=== PATIENT | female | born 1970 | race Caucasian/White ===

== ENCOUNTER → 2017-11-18 | Outpatient (CLI) | payer OTHER ==
[2017-11-18 18:56] LABS: Basophils % (A) 0 %; Eosinophils # (A) 0.2 k/uL (0-0.7); Eosinophils % (A) 3 %; HCT 37.3 % (34.0-46.0); HGB 11.8 gm/dL (11.4-16.0); Hypochromasia Moderate; Lymphocytes % (A) 26 %; MCH 26.2 pg (25.0-35.0); MCHC 31.6 g/dL (31.0-37.0); MCV 82.8 fL (80.0-100.0); Mean Platelet Volume 8.2; Monocytes # (A) 0.3 k/uL (0-1.0); Monocytes % (A) 4 %; Neutrophils # (A) 5.2 k/uL (1.3-7.7); Neutrophils % (A) 66 %; Platelet Count 325 k/uL (150-450); RBC 4.51 m/uL (3.80-5.40); RDW 14.7 % (11.5-15.5); WBC 7.9 k/uL (3.8-10.6)
[2017-11-18 18:57] LABS: ALT 28 U/L (9-52); AST 15 U/L (14-36); Alkaline Phosphatase 84 U/L (38-126); Anion Gap 12 mmol/L; Blood Urea Nitrogen 11 mg/dL (7-17); Calcium 9.1 mg/dL (8.4-10.2); Carbon Dioxide 25 mmol/L (22-30); Chloride 103 mmol/L (98-107); Cholesterol 202 mg/dL (<200); Glucose 89 mg/dL (74-99); HDL Cholesterol 45 mg/dL (40-60); LDL Cholesterol,Calculated 106 mg/dL (0-99); Potassium 4.5 mmol/L (3.5-5.1); Sodium 140 mmol/L (137-145); Total Bilirubin 0.2 mg/dL (0.2-1.3); Total Protein 6.7 g/dL (6.3-8.2); Triglycerides 253 mg/dL (<150)
[2017-11-18 19:12] LABS: T4, Free (Free Thyroxine) 1.05 ng/dL (0.78-2.19)
== END | disposition home or self-care (01) ==
LOC: MMGSC 10:14
PROVIDERS: ATTEND Family Medicine
DX: Z00.00 Encounter for general adult medical examination without abnormal findings (principal)
CPT/HCPCS: 36415; 80053; 80061; 84439; 84443; 85025

== ENCOUNTER → 2022-05-13 | Outpatient (CLI) | payer BC ==
[2022-05-13 13:08] VITALS: BP 170/94; PULSE 92; RESP 18; TEMP 98.9
--- NOTE | 2022-05-13 13:31 | P.GSHP ---
History of Present Illness H&P Date: 05/13/22 Chief Complaint: Abnormal left breast mammogram Karma is a 52-year-old female seen in consultation for Dr. Luna regarding a mammographic abnormality in her left breast. [place] [address]. Additional views of the left breast were recommended. This was performed and [id number] this revealed a punctate amorphous calcifications with cluster distribution seen in the left breast at 7:00 in the inferior medial aspect. Recommendation was for [facility] to core biopsy. The patient does not feel any lumps masses or nodules of concern in either breast. She is not complaining of any nipple discharge or skin changes. She has not had any recent trauma or infection of the breast. She has never had any surgery or biopsies in her breast. Caffiene: 2-3 cups coffee/day nicotine: none chocolate: occasional BCP: 15 years stopped 20 years ago Family history: mother: at 64 of breast cancer; tested (-) BRACA first diagnosed at 51; a mastectomy and returned at 66 mets and in 9 months maternal great aunt: of breast cancer maternal great uncle: breast cancer maternal cousin: brain cancer paternal uncle: leukemia paternal cousin: jaw cancer Hormonal History: menarche: 14 M1, breast fed: no, age at :35 menopuase: still having periods last one started 3 days ago Surgical history: Medical history: gout Social History: Nicotine: Negative Alcohol: two a week mixed drinks drugs: none - Constitutional Constitutional: Reports sweats - EENT Eyes: denies blurred vision, denies pain Ears: bilateral: decreased hearing, tinnitus Ears, nose, mouth and throat: Denies headache, Denies sore throat - Breasts Breasts: bilateral: as per HPI - Cardiovascular Cardiovascular: Denies chest pain, Denies shortness of breath - Respiratory Respiratory: Denies cough, Denies 7 - Gastrointestinal Gastrointestinal: Denies abdominal pain, Denies diarrhea, Denies nausea, Denies vomiting - Genitourinary (Female) Genitourinary: Denies dysuria, Denies hematuria - Menstruation Comment: perimenopausal - Musculoskeletal Musculoskeletal: Denies myalgias - Integumentary Integumentary: Denies pruritus, Denies rash - Neurological Neurological: Denies numbness, Denies weakness - Psychiatric Psychiatric: Reports anxiety, Denies depression - Endocrine Endocrine: Denies fatigue, Denies weight change - Hematologic/Lymphatic Comment: none - Allergic/Immunologic Allergic/Immunologic: Reports as per HPI Past Medical History Past Medical History: No Reported History Additional Past Medical History / Comment(s): GOUT 2021 History of Any Multi-Drug Resistant Organisms: None Reported Past Surgical History: No Surgical Hx Reported Past Anesthesia/Blood Transfusion Reactions: No Reported Reaction Past Psychological History: Anxiety, Depression Smoking Status: Never smoker Past Drug Use History: None Reported Medications and Allergies Home Medications Medication Instructions Recorded Confirmed Type allopurinoL 100 mg PO DAILY 04/30/22 05/13/22 History amLODIPine [Norvasc] 2.5 mg PO DAILY 04/30/22 05/13/22 History Allergies Allergy/AdvReac Type Severity Reaction Status Date / Time No Known Allergies Allergy Verified 05/13/22 13:01 Surgical - Exam Vital Signs Temp Pulse Resp BP Pulse Ox 98.9 F 92 18 170/94 98 05/13/22 13:02 05/13/22 13:02 05/13/22 13:02 05/13/22 13:02 05/13/22 13:02 BMI: 43.8 - General no distress - Eyes normal ocular movement - Neck trachea midline - Respiratory normal respiratory effort, clear to auscultation - Cardiovascular Rhythm: regular Heart Sounds: normal: S1, S2 - Abdomen Abdomen: soft, non tender, no guarding, no rigid, no rebound - Integumentary normal turgor - Neurologic no disoriented, no combative - Musculoskeletal normal gait, normal posture - Psychiatric oriented to time, oriented to person, oriented to place, speech is normal, memory intact Breast Exam: BRA: 42DD inspection: bilateral grade 3 ptosis Palpation: Right breast: Multi-positional exam fibrocystic changes no dominant masses or nodules of concern Right axilla: No adenopathy of concern Left breast: Multiple positional exam fibrocystic changes no dominant masses or nodules of concern Left axilla: No adenopathy of concern Results Mammogram reviewed with Dr. Baker; microcalcifications in the left breast 7 o'clock position noted Assessment and Plan Assessment: Impression: Microcalcifications of concern left breast Fibrocystic breast changes Family history of breast cancer Gout Plan: Stereotactic core biopsy left breast Risk and benefits of the procedure discussed with the patient. Risks include but are not limited to bleeding, infection, reaction to the anesthetic. If the lesion were discordant biopsy and additional tissue may be necessary. Alternatives such as watchful waiting dissection the operating room or noted but not recommended. The patient understands and wishes to proceed. CC: Dr. Luna
== END ==
LOC: WWCWWP 12:51
PROVIDERS: ATTEND Surgery
DX: N60.11 Diffuse cystic mastopathy of right breast (principal); N60.12 Diffuse cystic mastopathy of left breast; Z80.3 Family history of malignant neoplasm of breast; M10.9 Gout, unspecified; F41.9 Anxiety disorder, unspecified; F32.A Depression, unspecified

== ENCOUNTER → 2022-05-14 | Day surgery (SDC) | payer BC ==
[2022-05-14 07:24] VITALS: RESP 16
[2022-05-14 09:28] VITALS: BP 124/79; PULSE 76; TEMP 98.7
--- NOTE | 2022-05-17 08:27 | MM ---
Date of Procedure: 05/14/22 Preoperative Diagnosis: Microcalcifications of concern left breast/after review with Dr. Calixto there were 2 areas which were recommended to be biopsied, location 7:00 left breast inferior medial aspect Postoperative Diagnosis: Same Procedure(s) Performed: Stereotactic core biopsy 2 areas of concern left breast inferior medial region Anesthesia: local Surgeon: Fabi Salazar Pathology: other (Posterior calcifications: Clip Top-Hat secured marked, calcifications noted in specimenAnterior calcifications: Try Arvind bowtie clip, calcifications noted in specimen) Condition: stable Disposition: same day Indications for Procedure: Microcalcifications of concern 2 areas in the left breast at the 7 o'clock position Operative Findings: Calcifications of concern noted in both the posterior and anterior biopsy specimens Description of Procedure: Karma is a 52-year-old white female who underwent a routine screening mammogram was noted to have calcifications of concern in the 7 o'clock position of the left breast. Review with our radiologist revealed 2 areas and 2 sites were designated for stereotactic core biopsy in the inferior medial aspect of the breast. Risks and benefits of the procedure were discussed with the patient. Risks include but are not limited to bleeding, infection, reaction to the anesthetic. Additionally alternatives such as watchful waiting or resection in the operating room were discussed but not recommended. The patient was brought to the stereotactic core biopsy room. She was positioned prone on the lo-rad table. A CC from below approach was utilized. The posterior calcifications were identified initially. These were targeted. The breast was prepped using Betadine. 20 mL of 1% lidocaine were used to anesthetize the area of concern. A 9-gauge vacuum-assisted core rotating biopsy needle was driven to the correct coordinates. A prefire film was obtained. The needle was noted to be in the correct location. The needle was fired. A post- fire film revealed the needle to be in the correct location. 24 core biopsy specimens were obtained. Radiograph of the specimens revealed the calcifications of concern had been sampled. A secure arvind Top-Hat clip was placed. This appeared to be in the correct location. The patient was repositioned on the lo-rad table. A CC from below approach was utilized. The anterior microcalcifications of concern were identified. These were targeted. The breast was prepped using Betadine. A 9-gauge vacuum- assisted core rotating biopsy needle was driven to the correct coordinates. 20 mL of 1% lidocaine were used to anesthetize the area of concern. A prefire film revealed the needle to be in the correct location. The needle was fired. A post fire film revealed the needle to be in the correct location. 14 core biopsy specimens were obtained. Radiograph of the specimens revealed the calcifications of concern had been sampled. A tri-arvind bowtie clip was placed. This appeared to be in the correct location. The specimens are sent to pathology. The patient will follow-up with Dr. Tom next week. A postprocedure mammogram to review will be obtained to assure the placement of the clips in the correct location. JOSE FRANCISCO
== END ==
LOC: RADMAMWWP 07:15
PROVIDERS: ATTEND Surgery
DX: N60.12 Diffuse cystic mastopathy of left breast (principal); N60.22 Fibroadenosis of left breast; D24.2 Benign neoplasm of left breast; N62 Hypertrophy of breast; R92.0 Mammographic microcalcification found on diagnostic imaging of breast; N60.02 Solitary cyst of left breast; Z79.899 Other long term (current) drug therapy
CPT/HCPCS: 88305; 19081; 19082; A4648; J2001

== ENCOUNTER 2022-09-03 10:10 | Day surgery (SDC) | payer BC ==
[2022-09-01 10:22] VITALS: BMI 42.9
[~2022-09-03 10:10] MED LIST: LACTATED RINGERS 1,000 ML IV SCH
[2022-09-03 12:29] VITALS: TEMP 97.9
[2022-09-03] MEDS ORDERED: LIDOCAINE 1% (10MG/ML) FOR IV START INTRADERMA ONE (12:30)
[2022-09-03] MEDS ORDERED: fentaNYL (PF) 50 MCG/ML 2 ML AMP ONE (12:58)
[2022-09-03] MEDS ORDERED: MIDAZOLAM 2 MG/2 ML VIAL ONE (12:58)
[2022-09-03] MEDS ORDERED: PROPOFOL 10 MG/ML 20 ML VIAL IV ONE (12:58)
--- NOTE | 2022-09-03 13:11 | P.PCN ---
Date of Procedure: 09/03/22 Procedure(s) Performed: BRIEF HISTORY: Patient is a 52-year-old pleasant white female scheduled for an elective colonoscopy as a part of screening for colorectal neoplasia. PROCEDURE PERFORMED: Colonoscopy with snare polypectomy. PREOPERATIVE DIAGNOSIS: Screening for colon cancer. IV sedation per Anesthesia. PROCEDURE: After informed consent was obtained, the patient, was brought into the endoscopy unit. IV sedation was administered by Anesthesia under continuous monitoring. Digital rectal examination was normal. Initially the Olympus CF-160 flexible video colonoscope was then inserted in the rectum, gradually advanced into the cecum without any difficulty. Careful examination was performed as the scope was gradually being withdrawn. Ileocecal valve and the appendiceal orifice were visualized and appeared normal. Prep was excellent. Mucosa of the cecum, appeared normal. In the ascending colon there was a 7 mm flat polyp removed by snare polypectomy. Rest of the ascending colon, transverse colon, descending colon, sigmoid colon, and rectum appeared normal. Retroflexion was performed in the rectum and no lesions were seen. The patient tolerated the procedure well. IMPRESSION: 7 mm flat ascending colon polyp status post polypectomy Rest of the colon appeared normal RECOMMENDATIONS: Findings of this examination were discussed with the patient as well as a family. She was advised to follow with the biopsy results. If the biopsy results adenoma she can have a repeat colonoscopy in 5 years.
[2022-09-03 13:17] VITALS: RESP 20
[2022-09-03 13:32] VITALS: BP 154/84; PULSE 91
== END 2022-09-03 13:48 ==
LOC: ORWHC2ENDO 10:10
PROVIDERS: ATTEND Internal Medicine Gastroenterology
DX: Z12.11 Encounter for screening for malignant neoplasm of colon (principal); K63.5 Polyp of colon; I10 Essential (primary) hypertension; F32.A Depression, unspecified; F41.9 Anxiety disorder, unspecified; Z79.899 Other long term (current) drug therapy
CPT/HCPCS: 81025; 88305; 45385; J2250; J3010; J2704

== ENCOUNTER → 2022-12-01 | Outpatient (CLI) | payer BC ==
--- NOTE | 2022-12-01 10:19 | MM ---
Reason for Exam: Follow-up at short interval from prior study. Last screening mammogram was performed 8 month(s) ago. Patient History: Menarche at age 13. First Full-Term at age 35. Late child-bearing (after 30). Perimenopausal. Previous Hyperplasia w/o Atypia at age 52. 05/14/2022, Benign MG stereo VAD BX LT on the left side. 05/14/2022, Benign MG stereo VAD BX addl LT on the left side. Maternal aunt had breast cancer. Maternal uncle had breast cancer. Mother had breast cancer, age 49. Last menstrual period: 11/11/2022 Risk Values: Cynthia 5 year model risk: 3.2%. NCI Lifetime model risk: 26.7%. Tissue Density: Left: There are scattered fibroglandular densities. Findings: Analyzed By CAD. Left breast biopsy clips. No suspicious masses, calcifications or distortions. Overall Assessment: Benign, BI-RAD 2 Management: Screening Mammogram of both breasts in 6 months. A clinical breast exam by your physician is recommended on an annual basis and results should be correlated with mammographic findings. This exam should not preclude additional follow-up of suspicious palpable abnormalities. Results were given to the patient verbally at the time of exam. Electronically signed and approved by: Ronald Weaver DO
== END | disposition home or self-care (01) ==
LOC: RADMAMWWP 09:44
PROVIDERS: ATTEND Surgery
DX: R92.8 Other abnormal and inconclusive findings on diagnostic imaging of breast (principal); Z80.3 Family history of malignant neoplasm of breast
CPT/HCPCS: 77061; 77065

== ENCOUNTER → 2023-05-31 | Outpatient (CLI) | payer BC ==
--- NOTE | 2023-05-31 12:39 | MM ---
Reason for Exam: Screening (asymptomatic). Last mammogram was performed 1 year(s) and 2 month(s) ago. Patient History: Menarche at age 13. First Full-Term at age 35. Late child-bearing (after 30). Perimenopausal. Previous Hyperplasia w/o Atypia at age 52. 05/14/2022, Benign MG stereo VAD BX LT on the left side. 05/14/2022, Benign MG stereo VAD BX addl LT on the left side. Maternal aunt had breast cancer. Maternal uncle had breast cancer. Mother had breast cancer, age 49. Risk Values: Cynthia 5 year model risk: 3.4%. NCI Lifetime model risk: 26.3%. Prior Study Comparison: [place] [facility] [place] [facility] [place]22 Left MG 3D diag mammo w/cad LT, [facility]. Tissue Density: The breast tissue is heterogeneously dense. This may lower the sensitivity of mammography. Findings: Analyzed By CAD. Left breast biopsy clip. There is no suspicious group of microcalcifications or new suspicious mass in either breast. Overall Assessment: Negative, BI-RAD 1 Management: Screening Mammogram of both breasts in [address] [facility] will attempt to contact patient to return for supplemental views and ultrasound if indicated. Patient should continue monthly self-breast exams. A clinical breast exam by your physician is recommended on an annual basis. This exam should not preclude additional follow-up of suspicious palpable abnormalities. Note on Cynthia scores and lifetime risk: 1. A Cynthia score greater than 3% is considered moderate risk. If this is the case, consider specialist referral to assess eligibility for a risk reducing agent. 2. If overall lifetime risk for the development of breast cancer is 20% or higher, the patient may qualify for future screening with alternating mammogram and breast MRI. Electronically signed and approved by: Ronald Weaver DO
== END | disposition home or self-care (01) ==
LOC: RADMAMWWP 08:47
PROVIDERS: ATTEND Surgery
DX: Z12.31 Encounter for screening mammogram for malignant neoplasm of breast (principal); Z80.3 Family history of malignant neoplasm of breast
CPT/HCPCS: 77063; 77067

== ENCOUNTER → 2023-06-03 | Outpatient (CLI) | payer BC ==
[2023-06-03 10:26] VITALS: BP 154/87; PULSE 105; RESP 18; TEMP 97.8
--- NOTE | 2023-06-03 10:51 | P.PN ---
Subjective Progress Note Date: 06/03/23 Principal diagnosis: Fibrocystic breast changes, high risk breast cancer fibrocystic breast changes/surveillance Karma is a 52-year-old female seen in consultation for Dr. Luna regarding a mammographic abnormality in her left breast. She underwent a bilateral screening mammogram on . Additional views of the left breast were recommended. [place] was performed [place] [id number] this revealed a punctate amorphous calcifications with cluster distribution seen in the left breast at 7:00 in the inferior medial aspect. Recommendation was for stero-tactic core biopsy. She had stero biopsy of two area in the left breast on 05-14-22 which were benign specific. The patient does not feel any lumps masses or nodules of concern in either breast. She is not complaining of any nipple discharge or skin changes. She has not had any recent trauma or infection of the breast. Bilateral mammograms [id number] BIRAD 1 Cynthia five-year risk 3.4%, discussed chemoprevention and patient declined NCI lifetime risk 26.3% Caffiene: 2-3 cups coffee/day nicotine: none chocolate: occasional BCP: 15 years stopped 20 years ago Family history: mother: at 64 of breast cancer; tested (-) BRCA first diagnosed at 49; a mastectomy and returned at 66 mets and in 9 months maternal great aunt: of breast cancer maternal great uncle: breast cancer maternal cousin: brain cancer paternal uncle: leukemia paternal cousin: jaw cancer Hormonal History: menarche: 14 M1, breast fed: no, age at :35 menopuase: still having periods last one started 3 days ago Surgical history: D&C Medical history: gout Social History: Nicotine: Negative Alcohol: two a week mixed drinks drugs: none - Constitutional Constitutional: Reports sweats - EENT Eyes: denies blurred vision, denies pain Ears: bilateral: decreased hearing, tinnitus Ears, nose, mouth and throat: Denies headache, Denies sore throat - Breasts Breasts: bilateral: as per HPI - Cardiovascular Cardiovascular: Denies chest pain, Denies shortness of breath - Respiratory Respiratory: Denies cough - Gastrointestinal Gastrointestinal: Denies abdominal pain, Denies diarrhea, Denies nausea, Denies vomiting - Genitourinary (Female) Genitourinary: Denies dysuria, Denies hematuria - Menstruation Comment: perimenopausal - Musculoskeletal Musculoskeletal: Denies myalgias - Integumentary Integumentary: Denies pruritus, Denies rash - Neurological Neurological: Denies numbness, Denies weakness - Psychiatric Psychiatric: Reports anxiety, Denies depression - Endocrine Endocrine: Denies fatigue, Denies weight change - Hematologic/Lymphatic Comment: none - Allergic/Immunologic Allergic/Immunologic: Reports as per HPI Past Medical History Past Medical History: No Reported History Additional Past Medical History / Comment(s): GOUT 2021 History of Any Multi-Drug Resistant Organisms: None Reported Past Surgical History: No Surgical Hx Reported Past Anesthesia/Blood Transfusion Reactions: No Reported Reaction Past Psychological History: Anxiety, Depression Smoking Status: Never smoker Past Drug Use History: None Reported Medications and Allergies Home Medications Medication Instructions Recorded Confirmed Type allopurinoL 100 mg PO DAILY 04/30/22 05/13/22 History amLODIPine [Norvasc] 2.5 mg PO DAILY 04/30/22 05/13/22 History Allergies Allergy/AdvReac Type Severity Reaction Status Date / Time No Known Allergies Allergy Verified 05/13/22 13:01 Objective - Vital Signs Vital signs: Vital Signs Temp 97.8 F 06/03/23 10:22 Pulse 105 H 06/03/23 10:22 Resp 18 06/03/23 10:22 BP 154/87 06/03/23 10:22 Pulse Ox 96 06/03/23 10:22 FiO2 Intake & Output 06/02/23 06/03/23 06/03/23 18:59 06:59 18:59 Weight 111.13 kg - Constitutional General appearance: Present: cooperative - EENT Eyes: Present: EOMI ENT: Present: hearing grossly normal - Neck Neck: Present: normal ROM - Respiratory Respiratory: bilateral: CTA - Cardiovascular Rhythm: regular Heart sounds: normal: S1, S2 - Gastrointestinal General gastrointestinal: Present: soft - Integumentary Integumentary: Present: normal turgor - Musculoskeletal Musculoskeletal: Present: gait normal - Psychiatric Psychiatric: Present: A&O x's 3, appropriate affect, intact judgment & insight - Additional findings Additional findings: Breast Exam: BRA: 42DD inspection: bilateral grade 3 ptosis; Palpation: Right breast: Multi-positional exam fibrocystic changes no dominant masses or nodules of concern Right axilla: No adenopathy of concern Left breast: Multiple positional exam fibrocystic changes no dominant masses or nodules of concern Left axilla: No adenopathy of concern Assessment and Plan Assessment: Impression: Bilateral fibrocystic breast changes Cynthia five-year model risk 3.4%, NCI lifetime risk 26.3% Plan: Bilateral mammogram in 1 year consider alternate 6 months MRI are going to see if her insurance company will allow this if so I will see her in 6 months after the MRI otherwise I will see her in 1 year after her mammogram discussion about chemo prophylaxis,patient declined Cc: Dr. Luna
== END ==
LOC: WWCWWP 10:15
PROVIDERS: ATTEND Surgery
DX: Z71.2 Person consulting for explanation of examination or test findings (principal); N60.11 Diffuse cystic mastopathy of right breast; N60.12 Diffuse cystic mastopathy of left breast; M10.9 Gout, unspecified; Z80.3 Family history of malignant neoplasm of breast

== ENCOUNTER → 2023-12-12 | Outpatient (CLI) | payer BC ==
--- NOTE | 2023-12-13 10:09 | BMR ---
EXAM DATE: 12/12/2023 EXAM DESCRIPTION: MRI-Breast Bilat (W/WO Contrast) INDICATION: >20% lifetime risk for malignancy presenting for high risk surveillance COMPARISON: PRIOR MRIs: None available. Correlation to mammograms: 05/31/2023, 12/01/2022. Correlation to ultrasound: None available. CONTRAST: 12 cc Gadavist IV gadolinium contrast TECHNIQUE: Study was performed at [facility] with Radiologic interpretation by [facility] Multiplanar multisequence MR imaging of both breasts was performed with a dedicated breast coil. Images were obtained before and after administration of IV gadolinium, using the standard breast mass protocol. Computer aided detection was utilized for interpretation. FINDINGS: LMP: Not provided General breast composition: There are scattered areas of fibroglandular tissue Background parenchymal enhancement: Mild RIGHT BREAST: The T2 weighted series shows no areas of abnormal signal intensity. Review of the dynamic series shows no early or abnormal enhancement. LEFT BREAST: The T2 weighted series shows no areas of abnormal signal intensity. Review of the dynamic series shows no early or abnormal enhancement. LYMPH NODES: There is no evidence of internal mammary or axillary adenopathy. IMPRESSION: RIGHT BREAST: No MR evidence of malignancy. LEFT BREAST: No MR evidence of malignancy. OVERALL ASSESSMENT -- BI- RADS 1: Negative ANNUAL SCREENING BREAST MRI IN ADDITION TO MAMMOGRAPHY IS RECOMMENDED IN PATIENTS WITH LIFETIME RISK OF BREAST CANCER >20% MTDD
== END | disposition home or self-care (01) ==
LOC: RADMRIMAIN 05:52
PROVIDERS: ATTEND Surgery
DX: R92.8 Other abnormal and inconclusive findings on diagnostic imaging of breast (principal)
CPT/HCPCS: 77049; A9585

== ENCOUNTER → 2024-06-01 | Outpatient (CLI) | payer BC ==
--- NOTE | 2024-06-08 21:25 | MM ---
Reason for Exam: Screening (asymptomatic). Last screening mammogram was performed 12 month(s) ago. Patient History: Menarche at age 13. First Full-Term at age 35. Late child-bearing (after 30). Perimenopausal. Previous Hyperplasia w/o Atypia at age 52. 05/14/2022, Benign MG stereo VAD BX LT on the left side. 05/14/2022, Benign MG stereo VAD BX addl LT on the left side. Maternal aunt had breast cancer under age 50. Maternal aunt had breast cancer at or over age 50. Maternal uncle had breast cancer. Mother had breast cancer, age 49. Mother had breast cancer at or over age 50. Risk Values: Adenike 5 year model risk: 3.5%. NCI Lifetime model risk: 25.9%. Prior Study Comparison: 05/05/2020 Bilateral MG 3D screening mammo w/cad, [facility]. 04/06/2022 Bilateral MG 3D screening mammo w/cad, [facility]. 04/15/2022 Left MG 3D work up w/cad LT - 2, [facility]. 12/01/2022 Left MG 3D diag mammo w/cad LT, [facility]. 05/31/2023 Bilateral MG 3D screening mammo w/cad, [facility]. Tissue Density: There are scattered areas of fibroglandular density. Findings: Analyzed By CAD. Unchanged bilateral areas of asymmetric density as well as scattered round and punctate calcifications. There is no suspicious group of microcalcifications or new suspicious mass in either breast. Overall Assessment: Benign, BI-RAD 2 Management: Screening Mammogram of both breasts in 1 year. SEE NOTE BELOW IN REGARDS TO PATIENT'S INCREASED 5 YEAR ADENIKE SCORE WELL PATIENT'S INCREASED LIFETIME RISK SCORE. Patient should continue monthly self-breast exams. A clinical breast exam by your physician is recommended on an annual basis. This exam should not preclude additional follow-up of suspicious palpable abnormalities. Note on Adenike scores and lifetime risk: 1. A Adenike score greater than 3% is considered moderate risk. If this is the case, consider specialist referral to assess eligibility for a risk reducing agent. 2. If overall lifetime risk for the development of breast cancer is 20% or higher, the patient may qualify for future screening with alternating mammogram and breast MRI. Electronically signed and approved by: Avila Vargas M.D. Radiologist
== END | disposition home or self-care (01) ==
LOC: RADMAMWWP 07:45
PROVIDERS: ATTEND Family Medicine
DX: Z12.31 Encounter for screening mammogram for malignant neoplasm of breast (principal); Z80.3 Family history of malignant neoplasm of breast
CPT/HCPCS: 77063; 77067

== ENCOUNTER → 2025-06-11 | Outpatient (CLI) | payer BC ==
--- NOTE | 2025-06-11 08:50 | MM ---
Reason for Exam: Screening (asymptomatic). Last screening mammogram was performed 12 month(s) ago. Patient History: Menarche at age 13. First Full-Term at age 35. Late child-bearing (after 30). Perimenopausal. Previous Hyperplasia w/o Atypia at age 52. 05/14/2022, Benign MG stereo VAD BX LT on the left side. 05/14/2022, Benign MG stereo VAD BX addl LT on the left side. Maternal aunt had breast cancer under age 50. Maternal aunt had breast cancer at or over age 50. Maternal uncle had breast cancer. Mother had breast cancer, age 49. Mother had breast cancer at or over age 50. Risk Values: Cynthia 5 year model risk: 3.6%. NCI Lifetime model risk: 25.6%. Prior Study Comparison: 12/01/2022 Left MG 3D diag mammo w/cad LT, [facility]. 05/31/2023 Bilateral MG 3D screening mammo w/cad, [facility]. 06/01/2024 Bilateral MG 3D screening mammo w/cad, [facility]. Tissue Density: The breasts are heterogeneously dense, which may obscure small masses. Findings: Analyzed By CAD. Right breast: There is no suspicious group of microcalcifications or new suspicious mass. Benign-appearing calcifications right breast. Left breast: There is no suspicious group of microcalcifications or new suspicious mass. Benign-appearing calcifications left breast. Overall Assessment: Benign, BI-RAD 2 Management: Screening Mammogram of both breasts in [address] [facility] will attempt to contact patient to return for supplemental views and ultrasound if indicated. Patient should continue monthly self-breast exams. A clinical breast exam by your physician is recommended on an annual basis. This exam should not preclude additional follow-up of suspicious palpable abnormalities. Note on Cynthia scores and lifetime risk: 1. A Cynthia score greater than 3% is considered moderate risk. If this is the case, consider specialist referral to assess eligibility for a risk reducing agent. 2. If overall lifetime risk for the development of breast cancer is 20% or higher, the patient may qualify for future screening with alternating mammogram and breast MRI. [facility], , 06/11/2025 8:47 AM. Electronically signed and approved by: Ronald Weaver DO
== END | disposition home or self-care (01) ==
LOC: RADMAMWWP 07:27
PROVIDERS: ATTEND Family Medicine
DX: Z12.31 Encounter for screening mammogram for malignant neoplasm of breast (principal); R92.333 Mammographic heterogeneous density, bilateral breasts; R92.1 Mammographic calcification found on diagnostic imaging of breast; Z80.3 Family history of malignant neoplasm of breast
CPT/HCPCS: 77063; 77067